=== PATIENT | female | born 1950 | race Caucasian/White ===

== ENCOUNTER → 2017-04-19 | Outpatient (CLI) | payer OTHER ==
[~2017-04-19] MED LIST: AMBI12.52 PO; AUGM875T27 PO; CALC600T30 PO; MULTTAB4 PO; PRIL40CA PO; TASI150C PO; TYLE325T5 PO
--- NOTE | 2017-04-19 13:39 | REPMRS ---
Patient History The patient states she had a clinical breast exam in 04/2017. Patient is postmenopausal, has history of Chronic Myeloid Leukemia cancer at age 61, and had previous chemotherapy at age 61. No known family history of cancer. Benign excisional biopsy of the left breast. Benign excisional biopsy of the right breast. Took hormonal contraceptives for 30 years. Digital Woman Screen Mammo: April 19, 2017 - Exam #: [id number] Bilateral CC and MLO view(s) were taken. Technologist: Nina Carey, Technologist Prior study comparison: January 15, 2016, bilateral digital mammo screening bilat, performed at [facility]. October 04, 2013, right breast digital mammo diagnostic unilateral, performed at [facility]. September 09, 2013, bilateral bilat screen digital mammo, performed at [facility] ([facility]). FINDINGS: The breast tissue is heterogeneously dense. This may lower the sensitivity of mammography. There is a moderate amount of heterogeneously dense fibroglandular tissue which is fairly symmetric. There is no interval development of dominant mass, architectural distortion, or clustered microcalcification typical of malignancy. There has been no change in the appearance of the mammogram from the prior studies. ASSESSMENT: BI-RADS/ACR category 1 mammogram. Negative. Recommendation Routine screening mammogram of both breasts in 1 year (for women over age 40). This mammogram was interpreted with the aid of an FDA-approved computer-aided dectection system. Electronically Signed By: Faizan Mcmillan MD 04/19/17 [id number]
--- NOTE | 2017-04-20 09:38 | DEXA ---
AP SPINE L1 - L4 1.069 -1.0 0.6 LT FEMUR TOTAL 0.848 -1.3 -0.1 RT FEMUR TOTAL 0.847 -1.3 -0.1 TOTAL BODY TOTAL OTHER DUAL FEMUR FRAX* ASSESSMENT Risk factors: History of adult fracture. 10 year probability of fracture Major osteoporotic fracture 15.8 % Hip fracture 2.0 % COMMENTS: There is low bone density of the spine and hips. The density of the spine has decreased 10.8% since the initial exam on 2007. The spine density has decreased 6.2% since the most recent exam on 07/07/2011. The density of the left hip has decreased 12.4% since the initial exam on 2007. The density of the left hip has decreased 12.1% since the most recent exam on . The density of the right hip has decreased 8.5% since the initial exam on 2007. The density of the right hip has decreased 12.4% since the most recent exam on 07/07/2011. FOLLOW-UP: Recommendation for the next bone density exam: 2 years. RICOD
== END ==
LOC: M WHC 08:14
PROVIDERS: ATTEND Nurse Practitioner Family
DX: Z12.31 Encounter for screening mammogram for malignant neoplasm of breast (principal); N95.9 Unspecified menopausal and perimenopausal disorder

== ENCOUNTER → 2018-04-20 | Outpatient (CLI) | payer MEDICARE, OTHER | LOC: M WHC 08:47 | DX: Z01.419 Encounter for gynecological examination (general) (routine) without abnormal findings (principal); Z12.31 Encounter for screening mammogram for malignant neoplasm of breast (principal); R92.8 Other abnormal and inconclusive findings on diagnostic imaging of breast; Z98.890 Other specified postprocedural states; Z92.0 Personal history of contraception; N95.2 Postmenopausal atrophic vaginitis; Z12.12 Encounter for screening for malignant neoplasm of rectum | CPT/HCPCS: 77067; G0123 ==

== ENCOUNTER → 2018-04-20 | Outpatient (REF) | payer MEDICARE, OTHER | LOC: M SFHCWAGY 09:04 | DX: Z01.419 Encounter for gynecological examination (general) (routine) without abnormal findings (principal); N95.2 Postmenopausal atrophic vaginitis | CPT/HCPCS: G0123 ==

== ENCOUNTER → 2018-07-19 | Outpatient (REF) | payer MEDICARE, OTHER | LOC: M SFHCCLAY 11:07 | DX: N39.0 Urinary tract infection, site not specified (principal) | CPT/HCPCS: 87086 ==

== ENCOUNTER → 2018-08-14 | Outpatient (REF) | payer MEDICARE, OTHER ==
[2018-08-14 16:59] LABS: APPEARANCE, URINE CLOUDY (CLEAR); BACTERIA, URINE AUTO NEGATIVE (NEGATIVE); BILIRUBIN, URINE AUTO NEGATIVE (NEGATIVE); BLOOD, URINE BLOOD 2+ (NEGATIVE); COLOR, URINE AMBER (YELLOW); GLUCOSE, URINE (UA) AUTO NEGATIVE (NEGATIVE); KETONE, URINE AUTO NEGATIVE (NEGATIVE); LEUKOCYTE ESTERASE, URINE AUTO NEGATIVE (NEGATIVE); NITRITE, URINE AUTO NEGATIVE (NEGATIVE); PROTEIN, URINE AUTO 2+ mg/dL (NEGATIVE); RBC, URINE AUTO TNTC /HPF (0-3); SPECIFIC GRAVITY URINE AUTO 1.016 (1.002-1.035); SQUAMOUS EPITHELIAL CELL UR AU 0 /HPF (0-6); UROBILINOGEN, URINE AUTO 0.2 mg/dL (0.0-2.0); WBC, URINE AUTO 0 /HPF (0-3)
== END ==
LOC: M LAB REF 16:23
DX: N20.0 Calculus of kidney (principal)
CPT/HCPCS: 81001

== ENCOUNTER → 2018-10-04 | Outpatient (CLI) | payer MEDICARE, OTHER | LOC: M LAB 11:37 | PROVIDERS: ATTEND Internal Medicine Hematology & Oncology | DX: C92.10 Chronic myeloid leukemia, BCR/ABL-positive, not having achieved remission (principal) | CPT/HCPCS: 36415; 88300; 90682; G0008 ==

== ENCOUNTER → 2019-01-09 | Outpatient (REF) | payer MEDICARE, OTHER ==
[2019-01-09 11:57] LABS: BASO % 0.5 % (0.0-1.0); EOS # 0.1 10^3/uL (0.0-0.50); EOS % 3.8 % (0.0-3.0); HEMATOCRIT 32.5 % (36.0-47.0); HEMOGLOBIN 10.8 g/dl (12.0-15.5); LYMPH # 1.3 10^3/uL (1.5-4.5); LYMPH % 34.9 % (24.0-44.0); MEAN CORPUSCULAR HEMOGLOBIN 31.5 pg (27.0-33.0); MEAN CORPUSCULAR HGB CONC 33.2 g/dl (32.0-36.5); MEAN CORPUSCULAR VOLUME 94.8 fl (80.0-96.0); MONO # 0.3 10^3/uL (0.0-0.8); MONO % 6.7 % (0.0-5.0); NEUTROPHILS % 53.8 % (36.0-66.0); PLATELET COUNT, AUTOMATED 268 10^3/uL (150-450); RED BLOOD COUNT 3.43 10^6/uL (4.00-5.40); WHITE BLOOD COUNT 3.7 10^3/uL (4.0-10.0)
[2019-01-09 12:20] LABS: CHOLESTEROL RISK RATIO 3.804 (<5); FOLATE 13.3 NG/ML (>5.4)
== END ==
LOC: M SFHCCLAY 07:23
PROVIDERS: ATTEND Family Medicine
DX: D64.9 Anemia, unspecified (principal); I42.9 Cardiomyopathy, unspecified

== ENCOUNTER → 2019-02-01 | Outpatient (CLI) | payer MEDICARE, OTHER ==
--- NOTE | 2019-02-01 07:54 | REP ---
Supine abdomen single AP view: No calcifications are projected over the kidneys. The right renal fossa is significantly obscured by superimposed bowel. There are pelvic calcifications, nonspecific, ureteral versus phleboliths. The The bowel gas pattern is normal. Skeletal structures and soft tissues otherwise are unremarkable except for degenerative disc disease in the lumbar spine. Electronically Signed by Patel Katz MD 02/01/2019 07:45 A
== END ==
LOC: M CLY 07:16
PROVIDERS: ATTEND Urology
DX: Z87.442 Personal history of urinary calculi (principal)

== ENCOUNTER → 2019-05-14 | Outpatient (CLI) | payer MEDICARE, OTHER ==
--- NOTE | 2019-05-15 14:28 | REPMRS ---
Patient History The patient states she had a clinical breast exam in 04/2019. No known family history of cancer. Benign excisional biopsy of the left breast. Benign excisional biopsy of the right breast. Took hormonal contraceptives for 30 years. Digital Woman Screen Mammo: May 14, 2019 - Exam #: [id number] Bilateral CC and MLO view(s) were taken. Technologist: Darshana Chin, Technologist Prior study comparison: April 20, 2018, bilateral digital woman screen mammo performed at [facility]. April 19, 2017, digital woman screen mammo performed at [facility]. January 15, 2016, bilateral digital mammo screening bilat, performed at [facility]. FINDINGS: The breast tissue is heterogeneously dense. This may lower the sensitivity of mammography. There is a moderate amount of heterogeneously dense fibroglandular tissue which is fairly symmetric. There is no interval development of dominant mass, architectural distortion, or grouped microcalcification typical of malignancy. There has been no change in the appearance of the mammogram from the prior studies. 3-D tomosynthesis shows no additional findings. Assessment: BI-RADS/ACR category 1 mammogram. Negative Mammogram. Recommendation Routine screening mammogram of both breasts in 1 year (for women over age 40). This patient's Lifetime Breast Cancer RIsk is estimated at 6.7 %. This mammogram was interpreted with the aid of an FDA-approved computer-aided dectection system. Electronically Signed By: Patel Katz M.D. 05/15/19 0419
== END ==
LOC: M WHC 08:50
PROVIDERS: ATTEND Nurse Practitioner Family
DX: Z12.31 Encounter for screening mammogram for malignant neoplasm of breast (principal); Z86.018 Personal history of other benign neoplasm; Z92.0 Personal history of contraception
CPT/HCPCS: 77063; 77067; G0463

== ENCOUNTER → 2019-06-24 | Outpatient (REF) | payer MEDICARE, OTHER ==
[2019-06-25 10:48] LABS: BILIRUBIN,TOTAL 0.4 MG/DL (0.2-1.0); CALCIUM LEVEL 9.3 MG/DL (8.8-10.2); CREATININE FOR GFR 1.3 MG/DL (0.55-1.30); GLOMERULAR FILTRATION RATE 43.5 (>45); POTASSIUM SERUM 4.3 MEQ/L (3.5-5.1); TOTAL PROTEIN 6.8 GM/DL (6.4-8.2)
== END ==
LOC: M SFHCCLAY 07:10
PROVIDERS: ATTEND Nurse Practitioner Family
DX: Z00.00 Encounter for general adult medical examination without abnormal findings (principal); E53.8 Deficiency of other specified B group vitamins

== ENCOUNTER → 2019-09-30 | Outpatient (CLI) | payer MEDICARE, OTHER ==
--- NOTE | 2019-09-30 11:43 | REP ---
Five views thorax / right ribs: 09/30/2019. Indication: Right-sided chest wall pain. Comparison: None. Findings: The lungs are clear. There is no pleural effusion or pneumothorax. The cardiomediastinal silhouette is unremarkable. There is no rib fracture detected. Impression: No acute rib fracture. No lung contusion. Electronically Signed by Jon Laughlin DO 09/30/2019 11:34 A
== END ==
LOC: M CLY 10:54
PROVIDERS: ATTEND Family Medicine
DX: R07.89 Other chest pain (principal)
CPT/HCPCS: 71101; G0463

== ENCOUNTER → 2019-11-28 | Outpatient (REF) | payer MEDICARE, OTHER ==
[2019-11-28 12:12] LABS: HEMATOCRIT 36.6 % (36.0-47.0); HEMOGLOBIN 11.8 g/dl (12.0-15.5); MEAN CORPUSCULAR HEMOGLOBIN 31.1 pg (27.0-33.0); MEAN CORPUSCULAR HGB CONC 32.2 g/dl (32.0-36.5); MEAN CORPUSCULAR VOLUME 96.6 fl (80.0-96.0); PLATELET COUNT, AUTOMATED 288 10^3/uL (150-450); RED BLOOD COUNT 3.79 10^6/uL (4.00-5.40); WHITE BLOOD COUNT 4.3 10^3/uL (4.0-10.0)
[2019-11-28 12:41] LABS: ALBUMIN 3.9 GM/DL (3.2-5.2); BILIRUBIN,TOTAL 0.5 MG/DL (0.2-1.0); CHOLESTEROL RISK RATIO 4.302 (<5); CREATININE FOR GFR 1.18 MG/DL (0.55-1.30); GLOMERULAR FILTRATION RATE 48.6 (>45); POTASSIUM SERUM 4.3 MEQ/L (3.5-5.1); TOTAL PROTEIN 6.5 GM/DL (6.4-8.2)
[2019-11-28 12:48] LABS: TOTAL 25(OH) VITAMIN D 24.2 NG/ML (30.0-100.0)
== END ==
LOC: M SFHCCLAY 07:09
PROVIDERS: ATTEND Family Medicine
DX: Z13.21 Encounter for screening for nutritional disorder (principal); E78.00 Pure hypercholesterolemia, unspecified; E53.8 Deficiency of other specified B group vitamins; Z79.899 Other long term (current) drug therapy

== ENCOUNTER → 2020-02-11 | Outpatient (CLI) | payer MEDICARE, OTHER ==
--- NOTE | 2020-02-11 09:33 | REP ---
KUB ABDOMEN AND PELVIS: Two KUB films of the abdomen and pelvis are performed. There is mild to moderate fecal material seen throughout the colon. Phleboliths are see in the pelvis unchanged since prior study 02/01/2019. No new abnormal calcifications are seen in the region of the kidneys. There are mild degenerative changes of the spine. IMPRESSION: Mild to moderate fecal material. No definite renal calculi. Electronically Signed by Patel Polanco MD 02/11/2020 10:37 A
== END ==
LOC: M CLY 08:34
PROVIDERS: ATTEND Urology
DX: N20.0 Calculus of kidney (principal); C92.10 Chronic myeloid leukemia, BCR/ABL-positive, not having achieved remission; I87.8 Other specified disorders of veins

== ENCOUNTER → 2020-02-11 | Outpatient (REF) | payer MEDICARE, OTHER ==
[2020-02-11 11:21] LABS: BASO % 0.6 % (0.0-1.0); EOS # 0.1 10^3/uL (0.0-0.5); EOS % 2.5 % (0.0-3.0); HEMATOCRIT 36.9 % (36.0-47.0); HEMOGLOBIN 12.2 g/dl (12.0-15.5); LYMPH # 1.1 10^3/uL (1.5-5.0); LYMPH % 31.5 % (24.0-44.0); MEAN CORPUSCULAR HEMOGLOBIN 30.9 pg (27.0-33.0); MEAN CORPUSCULAR HGB CONC 33.1 g/dl (32.0-36.5); MEAN CORPUSCULAR VOLUME 93.4 fl (80.0-96.0); MONO # 0.2 10^3/uL (0.0-0.8); MONO % 6.5 % (0.0-5.0); NEUTROPHILS # 2.1 10^3/uL (1.5-8.5); NEUTROPHILS % 58.6 % (36.0-66.0); PLATELET COUNT, AUTOMATED 300 10^3/uL (150-450); RED BLOOD COUNT 3.95 10^6/uL (4.00-5.40); WHITE BLOOD COUNT 3.6 10^3/uL (4.0-10.0)
[2020-02-11 11:39] LABS: BILIRUBIN,TOTAL 0.7 MG/DL (0.2-1.0); CALCIUM LEVEL 9.3 MG/DL (8.8-10.2); CREATININE FOR GFR 1.21 MG/DL (0.55-1.30); GLOMERULAR FILTRATION RATE 47.2 (>45); POTASSIUM SERUM 4.2 MEQ/L (3.5-5.1); TOTAL PROTEIN 7.1 GM/DL (6.4-8.2)
== END ==
LOC: M LABDRAWC 11:08
PROVIDERS: ATTEND Nurse Practitioner Family
DX: C92.10 Chronic myeloid leukemia, BCR/ABL-positive, not having achieved remission (principal)

== ENCOUNTER → 2020-07-20 | Outpatient (CLI) | payer MEDICARE, OTHER ==
--- NOTE | 2020-07-20 15:29 | REPMRS ---
Patient History The patient states she had a clinical breast exam in 07/2020. Patient is postmenopausal, has history of leukemia cancer at age 61, and had previous chemotherapy at age 61. Family history of ovarian cancer at age 62 in maternal cousin. Benign excisional biopsy of the left breast. Benign excisional biopsy of the right breast. Took hormonal contraceptives for 30 years. 3D TOMOSYNTHESIS WAS PERFORMED. The [facility] lifetime risk for breast cancer is 6.0 %. VOLPARA DENSITY B. Digital Woman Screen Mammo: July 20, 2020 - Exam #: [id number] Bilateral CC and MLO view(s) were taken. Technologist: Nina Carey, Technologist Prior study comparison: May 14, 2019, bilateral digital woman screen mammo performed at [facility]. April 20, 2018, bilateral digital woman screen mammo performed at [facility]. FINDINGS: The breast tissue is heterogeneously dense. This may lower the sensitivity of mammography. There has been no change in the appearance of the mammogram from the prior studies. There is a moderate amount of residual fibroglandular tissue which is fairly symmetric. There is no interval development of dominant mass, areas of architectural distortion, or clustered microcalcification typical of malignancy. Assessment: BI-RADS/ACR category 1 mammogram. Negative Mammogram. Recommendation Routine screening mammogram in 1 year (for women over age 40). This mammogram was interpreted with the aid of an FDA-approved computer-aided dectection system. Electronically Signed By: Patel Polanco MD 07/20/20 7621
== END ==
LOC: M WHC 13:44
PROVIDERS: ATTEND Nurse Practitioner Family
DX: Z01.419 Encounter for gynecological examination (general) (routine) without abnormal findings (principal); Z12.31 Encounter for screening mammogram for malignant neoplasm of breast; Z78.0 Asymptomatic menopausal state; Z85.6 Personal history of leukemia; Z92.21 Personal history of antineoplastic chemotherapy; Z86.018 Personal history of other benign neoplasm; Z92.0 Personal history of contraception
CPT/HCPCS: 77063; 77067; G0101

== ENCOUNTER → 2020-07-28 | Outpatient (REF) | payer MEDICARE, OTHER ==
[2020-07-28 14:06] LABS: CALCIUM LEVEL 8.8 MG/DL (8.8-10.2); CREATININE FOR GFR 1.35 MG/DL (0.55-1.30); GLOMERULAR FILTRATION RATE 41.5 (>45); POTASSIUM SERUM 4.6 MEQ/L (3.5-5.1)
== END ==
LOC: M LABDRAWC 11:14
PROVIDERS: ATTEND Internal Medicine Cardiovascular Disease
DX: I42.9 Cardiomyopathy, unspecified (principal)

== ENCOUNTER → 2020-08-11 | Outpatient (REF) | payer MEDICARE, OTHER ==
[2020-08-11 12:05] LABS: EOS # 0.1 10^3/uL (0.0-0.5); EOS % 2.6 % (0.0-3.0); HEMATOCRIT 35.6 % (36.0-47.0); HEMOGLOBIN 11.3 g/dl (12.0-15.5); LYMPH # 1.1 10^3/uL (1.5-5.0); LYMPH % 35.4 % (24.0-44.0); MEAN CORPUSCULAR HEMOGLOBIN 29.9 pg (27.0-33.0); MEAN CORPUSCULAR HGB CONC 31.7 g/dl (32.0-36.5); MEAN CORPUSCULAR VOLUME 94.2 fl (80.0-96.0); MONO # 0.2 10^3/uL (0.0-0.8); NEUTROPHILS # 1.7 10^3/uL (1.5-8.5); PLATELET COUNT, AUTOMATED 322 10^3/uL (150-450); RED BLOOD COUNT 3.78 10^6/uL (4.00-5.40)
[2020-08-11 12:27] LABS: ALBUMIN 4.2 GM/DL (3.2-5.2); BILIRUBIN,TOTAL 0.4 MG/DL (0.2-1.0); CALCIUM LEVEL 9.2 MG/DL (8.8-10.2); CREATININE FOR GFR 1.23 MG/DL (0.55-1.30); GLOMERULAR FILTRATION RATE 46.2 (>45); POTASSIUM SERUM 4.1 MEQ/L (3.5-5.1); TOTAL PROTEIN 6.9 GM/DL (6.4-8.2)
== END ==
LOC: M LABDRAWC 11:12
PROVIDERS: ATTEND Physician Assistant
DX: C92.10 Chronic myeloid leukemia, BCR/ABL-positive, not having achieved remission (principal)

== ENCOUNTER → 2020-08-12 | Outpatient (CLI) | payer MEDICARE, OTHER ==
--- NOTE | 2020-08-12 09:46 | REP ---
INDICATION: H/O STONES. COMPARISON: 02/11/2020 FINDINGS: KUB shows the intestinal gas pattern to be nonspecific. The organ silhouettes insofar as delineated are unremarkable. There is no evidence of free intraperitoneal air. A moderate to large amount of stool is seen throughout the colon and for the most part obscuring the nephric silhouettes. No definite abnormal calcifications are noted. There are pelvic calcifications consistent with phleboliths status quo. There is no significant change in the osseous structures. IMPRESSION: No significant change from the prior exam. <Electronically signed by Hammad Landin > 08/12/20 0942
== END ==
LOC: M CLY 08:24
PROVIDERS: ATTEND Urology
DX: Z87.442 Personal history of urinary calculi (principal)

== ENCOUNTER → 2020-08-25 | Outpatient (REF) | payer MEDICARE, OTHER | LOC: M LABDRAWC 11:14 | PROVIDERS: ATTEND Physician Assistant | DX: C92.10 Chronic myeloid leukemia, BCR/ABL-positive, not having achieved remission (principal) ==

== ENCOUNTER → 2020-10-26 | Outpatient (REF) | payer MEDICARE, OTHER | LOC: M SFHCCLAY 11:31 | PROVIDERS: ATTEND Physician Assistant | DX: R30.0 Dysuria (principal) | CPT/HCPCS: 81002; 87088; 87186; G0463 ==

== ENCOUNTER → 2021-01-04 | Outpatient (CLI) | payer MEDICARE, OTHER ==
[~2021-01-04] MED LIST changes: +METHACHOLINE KIT (J7674) INH ONE
== END ==
LOC: M CARPUL 10:51
PROVIDERS: ATTEND Family Medicine
DX: R06.2 Wheezing (principal)
CPT/HCPCS: 94070; 95070; J7674

== ENCOUNTER → 2021-04-02 | Outpatient (REF) | payer MEDICARE, OTHER ==
[~2021-04-02] MED LIST changes: -METHACHOLINE KIT (J7674) INH ONE
[2021-04-02 12:35] LABS: BASO % 0.2 % (0.0-1.0); EOS # 0.1 10^3/uL (0.0-0.5); EOS % 1.7 % (0.0-3.0); HEMATOCRIT 38.2 % (36.0-47.0); HEMOGLOBIN 12.5 g/dl (12.0-15.5); LYMPH # 1.6 10^3/uL (1.5-5.0); LYMPH % 34.7 % (24.0-44.0); MEAN CORPUSCULAR HEMOGLOBIN 31.3 pg (27.0-33.0); MEAN CORPUSCULAR HGB CONC 32.7 g/dl (32.0-36.5); MEAN CORPUSCULAR VOLUME 95.7 fl (80.0-96.0); MONO # 0.4 10^3/uL (0.0-0.8); MONO % 7.7 % (2.0-8.0); NEUTROPHILS # 2.6 10^3/uL (1.5-8.5); NEUTROPHILS % 55.5 % (36.0-66.0); PLATELET COUNT, AUTOMATED 317 10^3/uL (150-450); RED BLOOD COUNT 3.99 10^6/uL (4.00-5.40); WHITE BLOOD COUNT 4.7 10^3/uL (4.0-10.0)
[2021-04-02 13:30] LABS: BILIRUBIN,TOTAL 0.4 MG/DL (0.2-1.0); CALCIUM LEVEL 9.2 MG/DL (8.8-10.2); CREATININE FOR GFR 1.13 MG/DL (0.55-1.30); POTASSIUM SERUM 4.3 MEQ/L (3.5-5.1); THYROID STIMULATING HORMONE 4.97 uIU/ML (0.358-3.740); TOTAL PROTEIN 6.9 GM/DL (6.4-8.2)
== END ==
LOC: M SFHCCLAY 07:30
PROVIDERS: ATTEND Family Medicine
DX: M70.51 Other bursitis of knee, right knee (principal); E78.00 Pure hypercholesterolemia, unspecified; C92.10 Chronic myeloid leukemia, BCR/ABL-positive, not having achieved remission; I42.9 Cardiomyopathy, unspecified

== ENCOUNTER → 2021-06-18 | Outpatient (CLI) | payer MEDICARE, OTHER | LOC: M WHC 10:17 | PROVIDERS: ATTEND Advanced Practice Midwife | DX: Z12.31 Encounter for screening mammogram for malignant neoplasm of breast (principal) ==

== ENCOUNTER → 2021-07-06 | Outpatient (REF) | payer MEDICARE, OTHER ==
[2021-07-06 11:54] LABS: FREE T4 0.97 NG/DL (0.76-1.46); THYROID STIMULATING HORMONE 3.65 uIU/ML (0.358-3.740)
== END ==
LOC: M SFHCCLAY 07:17
PROVIDERS: ATTEND Family Medicine
DX: R79.89 Other specified abnormal findings of blood chemistry (principal); E07.9 Disorder of thyroid, unspecified

== ENCOUNTER → 2021-08-06 | Outpatient (CLI) | payer MEDICARE, OTHER ==
--- NOTE | 2021-08-06 10:14 | REPMRS ---
Patient History The patient states she had a clinical breast exam on 06-18-2021. Patient is postmenopausal, has history of other cancer at age 61, and had previous chemotherapy at age 61. Family history of ovarian cancer at age 62 and breast cancer at age 67 in maternal cousin. Benign excisional biopsy of the left breast. Benign excisional biopsy of the right breast. Took hormonal contraceptives for 30 years. Patient states no breast complaints today. Patient has signed MRS History Sheet. Digital Woman Screen Mammo: August 06, 2021 - Exam #: [id number] Bilateral CC and MLO view(s) were taken. Technologist: Veronique Huston Handyman Prior study comparison: July 20, 2020, bilateral digital woman screen mammo performed at [facility]. May 14, 2019, bilateral digital woman screen mammo performed at [facility]. FINDINGS: The breast tissue is heterogeneously dense. This may lower the sensitivity of mammography. Screening. Digital screening (2D) mammography was performed bilaterally in the CC and MLO projections. Additionally, breast tomosynthesis (3D mammography) was performed bilaterally in the CC and MLO projections. Todays exam was compared to the prior exam/exams. By history, the patient has no complaints of a palpable breast abnormality or other significant breast complaints. The breasts are unchanged in size and shape. There are no kelsea-soft tissue densities or spiculated masses. There is no internal architectural distortion. Once again, stable benign appearing calcifications are seen.There are no suspicious kelsea-calcific clusters. Skin thickening or nipple retraction is not present. IMPRESSION: BI-RADS Category 2- Benign Findings. There is no evidence of malignant alteration of the breasts. Followup examination recommended in one year. The Volpara volumetric breast density category is C, the breasts are heterogenously dense which may obscure small masses. This mammogram was read with the assistance of [employer],an FDA approved computer aided detection system for mammography. The lifetime Tyrer-Cuzick score is 5.7 % Due to the density of the breasts or Tyrer Cuzick score of 20% or greater, MRI/whole breast screening ultrasound is warranted. Negative x-ray reports should not delay surgical consultation if a dominant or clinically suspicious mass is present. Not all breast cancers can be identified by mammography. Therefore, we recommend that you continue to perform regular breast self-examination and physical examination and then promptly contact your physician of any concerns or changes. Adenosis and dense breasts may obscure an underlying neoplasm. Assessment: BI-RADS/ACR category 2 mammogram. Benign Findings. Recommendation Routine screening mammogram of both breasts in 1 year. Electronically Signed By: Hammad Landin DO 08/06/21 1013
== END ==
LOC: M WHC 08:44
PROVIDERS: ATTEND Advanced Practice Midwife
DX: Z12.31 Encounter for screening mammogram for malignant neoplasm of breast (principal); Z80.3 Family history of malignant neoplasm of breast; Z80.49 Family history of malignant neoplasm of other genital organs; Z85.9 Personal history of malignant neoplasm, unspecified; Z78.0 Asymptomatic menopausal state; Z92.21 Personal history of antineoplastic chemotherapy

== ENCOUNTER → 2022-03-22 | Outpatient (REF) | payer MEDICARE, OTHER ==
[2022-03-22 11:47] LABS: BASO % 0.7 % (0.0-1.0); EOS # 0.1 10^3/uL (0.0-0.5); EOS % 3.1 % (0.0-3.0); HEMATOCRIT 35.4 % (36.0-47.0); HEMOGLOBIN 11.8 g/dl (12.0-15.5); LYMPH # 1.5 10^3/uL (1.5-5.0); LYMPH % 32.5 % (24.0-44.0); MEAN CORPUSCULAR HEMOGLOBIN 31.1 pg (27.0-33.0); MEAN CORPUSCULAR HGB CONC 33.3 g/dl (32.0-36.5); MEAN CORPUSCULAR VOLUME 93.4 fl (80.0-96.0); MONO # 0.4 10^3/uL (0.0-0.8); MONO % 7.9 % (2.0-8.0); NEUTROPHILS # 2.5 10^3/uL (1.5-8.5); NEUTROPHILS % 55.6 % (36.0-66.0); PLATELET COUNT, AUTOMATED 286 10^3/uL (150-450); RED BLOOD COUNT 3.79 10^6/uL (4.00-5.40); WHITE BLOOD COUNT 4.6 10^3/uL (4.0-10.0)
[2022-03-22 12:30] LABS: CHOLESTEROL RISK RATIO 4.534 (<5); FREE T4 0.98 NG/DL (0.76-1.46); MAGNESIUM LEVEL 2.4 MG/DL (1.8-2.4); THYROID STIMULATING HORMONE 3.37 uIU/ML (0.358-3.740)
== END ==
LOC: M SFHCCLAY 07:22
PROVIDERS: ATTEND Family Medicine
DX: R00.2 Palpitations (principal); I42.9 Cardiomyopathy, unspecified; E53.8 Deficiency of other specified B group vitamins

== ENCOUNTER → 2022-04-01 | Outpatient (REF) | payer MEDICARE, OTHER ==
[2022-04-01 16:51] LABS: AMORPHOUS SEDIMENT SMALL (NEGATIVE); APPEARANCE, URINE TURBID (CLEAR); BACTERIA, URINE AUTO NEGATIVE (NEGATIVE); BILIRUBIN, URINE AUTO NEGATIVE (NEGATIVE); BLOOD, URINE BLOOD NEGATIVE (NEGATIVE); CALCIUM OXALATE CRYSTALS SMALL; COLOR, URINE YELLOW (YELLOW); GLUCOSE, URINE (UA) AUTO NEGATIVE (NEGATIVE); KETONE, URINE AUTO NEGATIVE (NEGATIVE); LEUKOCYTE ESTERASE, URINE AUTO TRACE (NEGATIVE); MUCUS, URINE SMALL (NEGATIVE); NITRITE, URINE AUTO NEGATIVE (NEGATIVE); PROTEIN, URINE AUTO NEGATIVE (NEGATIVE); RBC, URINE AUTO 0 /HPF (0-3); SPECIFIC GRAVITY URINE AUTO 1.027 (1.002-1.035); SQUAMOUS EPITHELIAL CELL UR AU 0 /HPF (0-6); UROBILINOGEN, URINE AUTO 0.2 mg/dL (0.0-2.0); WBC, URINE AUTO 0 /HPF (0-3)
== END ==
LOC: M SFHCCLAY 09:46
PROVIDERS: ATTEND Family Medicine
DX: N20.0 Calculus of kidney (principal)

== ENCOUNTER → 2022-04-01 | Outpatient (CLI) | payer MEDICARE, OTHER | LOC: M CLY 10:07 | PROVIDERS: ATTEND Family Medicine | DX: M25.552 Pain in left hip (principal); M25.78 Osteophyte, vertebrae ==

== ENCOUNTER → 2022-04-24 | Outpatient (CLI) | payer MEDICARE, OTHER | LOC: M RAD 08:46 | PROVIDERS: ATTEND Orthopaedic Surgery | DX: M54.50 Low back pain, unspecified (principal) ==

== ENCOUNTER → 2022-10-05 | Outpatient (REF) | payer MEDICARE, OTHER ==
[2022-10-05 12:37] LABS: CHOLESTEROL RISK RATIO 3.89 (<5); HDL CHOLESTEROL 43.6 MG/DL (>40); LDL CHOLESTEROL 95.4 MG/DL (<100)
== END ==
LOC: M LABDRAWC 11:17
PROVIDERS: ATTEND Nurse Practitioner Family
DX: E78.5 Hyperlipidemia, unspecified (principal)

== ENCOUNTER → 2022-11-30 | Outpatient (REF) | payer MEDICARE, OTHER ==
[2022-11-30 14:31] LABS: CHOLESTEROL RISK RATIO 2.47 (<5); HDL CHOLESTEROL 48.4 MG/DL (>40)
[2022-11-30 22:02] LABS: LDL CHOLESTEROL 44.4 MG/DL (<100)
== END ==
LOC: M SFHCCLAY 07:19
PROVIDERS: ATTEND Family Medicine
DX: E78.00 Pure hypercholesterolemia, unspecified (principal); I42.9 Cardiomyopathy, unspecified

== ENCOUNTER → 2023-01-24 | Outpatient (REF) | payer MEDICARE, OTHER ==
[2023-01-24 11:32] LABS: BASO % 0.6 % (0.0-1.0); EOS # 0.1 10^3/uL (0.0-0.5); EOS % 3.4 % (0.0-3.0); HEMATOCRIT 36.2 % (36.0-47.0); HEMOGLOBIN 11.7 g/dl (12.0-15.5); LYMPH # 1.1 10^3/uL (1.5-5.0); LYMPH % 30.8 % (24.0-44.0); MEAN CORPUSCULAR HGB CONC 32.3 g/dl (32.0-36.5); MONO # 0.3 10^3/uL (0.0-0.8); MONO % 8.3 % (2.0-8.0); NEUTROPHILS % 56.6 % (36.0-66.0); PLATELET COUNT, AUTOMATED 289 10^3/uL (150-450); RED BLOOD COUNT 3.77 10^6/uL (4.00-5.40); WHITE BLOOD COUNT 3.5 10^3/uL (4.0-10.0)
[2023-01-24 11:59] LABS: ALBUMIN 4.1 G/DL (3.2-5.2); BILIRUBIN,TOTAL 0.4 MG/DL (0.3-1.2); CALCIUM LEVEL 9.2 MG/DL (8.3-10.6); CREATININE FOR GFR 1.2 MG/DL (0.55-1.30); FERRITIN 61.4 NG/ML (7.3-270.7); GLOMERULAR FILTRATION RATE 47.3 (>39); PERCENT SATURATION 15.7 % (13.2-45.0); POTASSIUM SERUM 4.3 MMOL/L (3.5-5.1); TOTAL PROTEIN 6.4 G/DL (5.7-8.2)
[2023-01-24 12:00] LABS: FOLATE 11.6 NG/ML (>5.4)
== END ==
LOC: M LABDRAWC 11:03
PROVIDERS: ATTEND Physician Assistant
DX: C92.10 Chronic myeloid leukemia, BCR/ABL-positive, not having achieved remission (principal)

== ENCOUNTER → 2023-04-12 | Outpatient (REF) | payer MEDICARE, OTHER | LOC: M SFHCWAGY 13:18 | PROVIDERS: ATTEND Nurse Practitioner Family | DX: Z12.4 Encounter for screening for malignant neoplasm of cervix (principal); N95.2 Postmenopausal atrophic vaginitis | CPT/HCPCS: 87624; G0123 ==

== ENCOUNTER → 2023-04-12 | Outpatient (CLI) | payer MEDICARE, OTHER | LOC: M WHC 10:57 | PROVIDERS: ATTEND Nurse Practitioner Family | DX: Z12.31 Encounter for screening mammogram for malignant neoplasm of breast (principal) ==

== ENCOUNTER → 2023-04-12 | Outpatient (CLI) | payer MEDICARE, OTHER | LOC: M WHC 11:30 | PROVIDERS: ATTEND Nurse Practitioner Family | DX: M85.89 Other specified disorders of bone density and structure, multiple sites (principal) ==

== ENCOUNTER → 2023-04-24 | Outpatient (CLI) | payer MEDICARE, OTHER | LOC: M CLY 08:20 | PROVIDERS: ATTEND Family Medicine | DX: M77.52 Other enthesopathy of left foot and ankle (principal) ==

== ENCOUNTER → 2023-07-05 | Outpatient (REF) | payer MEDICARE, OTHER | LOC: M SFHCCLAY 08:34 | PROVIDERS: ATTEND Physician Assistant | DX: R30.0 Dysuria (principal) ==

== ENCOUNTER 2023-07-27 12:04 | Day surgery (SDC) | payer MEDICARE, OTHER ==
[~2023-07-27] VITALS: Ht 165.1 cm; Wt 77.5 kg
[~2023-07-27 12:04] MED LIST changes: +ASPI81TA26 PO; +CALC-190 PO; +CARV3.12 PO; +ENTR1TAB7 PO; +ESTR0.1C5; +FLUT50SP17; +IMAT400T PO; +LIDOCAINE 2% 100MG/5ML SDV (FOR ANES.) As Ordered ONE; +NS 1,000 ML IV ONE; +ROSU5TAB5 PO; +THERTAB52 PO; +VALA500T5 PO; +propofoL 200 MG/20 ML VIAL As Ordered ONE
[2023-07-27 14:41] VITALS: BP 134/63; TEMP 97.9; O2SAT 96
== END 2023-07-27 14:50 | disposition home or self-care (01) ==
LOC: M OPP 12:04
PROVIDERS: ATTEND Internal Medicine Gastroenterology
DX: Z12.11 Encounter for screening for malignant neoplasm of colon (principal); Z86.010 Personal history of colon polyps; K63.5 Polyp of colon; K64.8 Other hemorrhoids; K57.30 Diverticulosis of large intestine without perforation or abscess without bleeding; Z79.02 Long term (current) use of antithrombotics/antiplatelets; Z79.52 Long term (current) use of systemic steroids; Z79.82 Long term (current) use of aspirin; Z79.899 Other long term (current) drug therapy; Z88.1 Allergy status to other antibiotic agents; Z88.5 Allergy status to narcotic agent

== ENCOUNTER → 2023-09-22 | Outpatient (REF) | payer MEDICARE, OTHER ==
[~2023-09-22] MED LIST changes: -FLUT50SP17; +FLUTISP; -LIDOCAINE 2% 100MG/5ML SDV (FOR ANES.) As Ordered ONE; -NS 1,000 ML IV ONE; -propofoL 200 MG/20 ML VIAL As Ordered ONE
== END ==
LOC: M SFHCCLAY 12:15
PROVIDERS: ATTEND Family Medicine
DX: R30.0 Dysuria (principal)

== ENCOUNTER → 2023-10-20 | Outpatient (REF) | payer MEDICARE, OTHER | LOC: M SFHCCLAY 08:29 | PROVIDERS: ATTEND Family Medicine | DX: Z53.9 Procedure and treatment not carried out, unspecified reason (principal) ==

== ENCOUNTER → 2023-10-23 | Outpatient (REF) | payer MEDICARE, OTHER ==
[2023-10-23 12:24] LABS: ALBUMIN 4.1 G/DL (3.2-5.2); BILIRUBIN,TOTAL 0.4 MG/DL (0.3-1.2); CALCIUM LEVEL 9.1 MG/DL (8.3-10.6); CHOLESTEROL RISK RATIO 2.63 (<5); CREATININE FOR GFR 1.29 MG/DL (0.55-1.30); GLOMERULAR FILTRATION RATE 43.4 (>39); HDL CHOLESTEROL 46.3 MG/DL (>40); LDL CHOLESTEROL 47.1 MG/DL (<100); NON-HDL-C 75.7 MG/DL; POTASSIUM SERUM 4.2 MMOL/L (3.5-5.1); TOTAL PROTEIN 6.4 G/DL (5.7-8.2)
== END ==
LOC: M SFHCCLAY 07:20
PROVIDERS: ATTEND Family Medicine
DX: Z00.01 Encounter for general adult medical examination with abnormal findings (principal); C92.10 Chronic myeloid leukemia, BCR/ABL-positive, not having achieved remission; Z79.899 Other long term (current) drug therapy

== ENCOUNTER → 2024-05-15 | Outpatient (CLI) | payer MEDICARE, OTHER ==
[~2024-05-15] MED LIST changes: +ROSU5TAB40 PO; -ROSU5TAB5 PO
== END ==
LOC: M WHC 08:20
PROVIDERS: ATTEND Nurse Practitioner Family
DX: Z01.419 Encounter for gynecological examination (general) (routine) without abnormal findings (principal); Z12.31 Encounter for screening mammogram for malignant neoplasm of breast; R92.333 Mammographic heterogeneous density, bilateral breasts; M85.88 Other specified disorders of bone density and structure, other site; M85.851 Other specified disorders of bone density and structure, right thigh; M85.852 Other specified disorders of bone density and structure, left thigh; N95.2 Postmenopausal atrophic vaginitis; Z13.820 Encounter for screening for osteoporosis; Z88.5 Allergy status to narcotic agent; Z88.8 Allergy status to other drugs, medicaments and biological substances; Z79.69 Long term (current) use of other immunomodulators and immunosuppressants; Z79.82 Long term (current) use of aspirin
CPT/HCPCS: 77063; 77067; 77080; G0101

== ENCOUNTER → 2024-10-30 | Outpatient (REF) | payer MEDICARE, OTHER ==
[~2024-10-30] MED LIST changes: -ROSU5TAB40 PO; +ROSU5TAB49 PO
[2024-10-30 11:33] LABS: ALBUMIN 4.1 G/DL (3.2-5.2); BILIRUBIN,TOTAL 0.4 MG/DL (0.3-1.2); CALCIUM LEVEL 8.7 MG/DL (8.3-10.6); CHOLESTEROL RISK RATIO 3.17 (<5); CREATININE FOR GFR 1.14 MG/DL (0.55-1.30); GLOMERULAR FILTRATION RATE 49.9 (>39); HDL CHOLESTEROL 45.6 MG/DL (>40); NON-HDL-C 99.4 MG/DL; POTASSIUM SERUM 4.3 MMOL/L (3.5-5.1); TOTAL PROTEIN 6.7 G/DL (5.7-8.2)
== END ==
LOC: M SFHCCLAY 07:27
PROVIDERS: ATTEND Physician Assistant
DX: Z00.00 Encounter for general adult medical examination without abnormal findings (principal); I42.9 Cardiomyopathy, unspecified; C92.10 Chronic myeloid leukemia, BCR/ABL-positive, not having achieved remission; E78.00 Pure hypercholesterolemia, unspecified

== ENCOUNTER → 2025-06-09 | Outpatient (CLI) | payer MEDICARE, OTHER | LOC: M WHC 13:49 | PROVIDERS: ATTEND Nurse Practitioner Family | DX: Z12.31 Encounter for screening mammogram for malignant neoplasm of breast (principal); R92.323 Mammographic fibroglandular density, bilateral breasts ==

== ENCOUNTER → 2025-06-09 | Outpatient (REF) | payer MEDICARE, OTHER ==
[2025-06-11 14:37] LABS: HPV APTIMA Not Detected (Not Detected)
== END ==
LOC: M SFHCWAGY 16:48
PROVIDERS: ATTEND Nurse Practitioner Family
DX: Z12.4 Encounter for screening for malignant neoplasm of cervix (principal)
CPT/HCPCS: 87624; G0123